=== PATIENT | male | born 1960 | race Two or more races ===

== ENCOUNTER 2018-10-22 10:56 | Emergency (ER) | payer SELFPAY ==
[~2018-10-22] VITALS: Ht 167.6 cm; Wt 59.0 kg
[2018-10-22] MEDS ORDERED: ONDANSETRON PF 4 MG/2 ML VIAL. IV ONE (11:30)
[2018-10-22] MEDS ORDERED: fentaNYL PF VIAL 100 MCG/2 ML VIAL IV ONE (11:30)
[2018-10-22 11:46] LABS: BASO # 0.1 x10^3/uL (0.0-0.2); BASO % 1 % (0-3); EOS # 0.2 x10^3/uL (0.0-0.7); EOS % 2 % (0-3); HEMATOCRIT 44.9 % (39.0-53.0); HEMOGLOBIN 14.9 g/dL (13.0-17.5); LYMPH # 1.7 x10^3/uL (1.0-4.8); LYMPH % 16 % (24-48); MEAN CORPUSCULAR HEMOGLOBIN 28 pg (25-35); MEAN CORPUSCULAR HGB CONC 33 g/dL (31-37); MEAN CORPUSCULAR VOLUME 85 fL (79-100); MONO # 0.6 x10^3/uL (0.0-1.1); MONO % 6 % (0-9); NEUT % 75 % (31-73); PLATELET COUNT 181 x10^3/uL (140-400); RED CELL DISTRIBUTION WIDTH 13.6 % (11.5-14.5); WHITE BLOOD COUNT 10.6 x10^3/uL (4.0-11.0)
[2018-10-22 12:01] LABS: PROTHROMBIN TIME PATIENT 12.4 SEC (11.7-14.0)
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
[2018-10-22 12:02] LABS: CALCIUM 9.5 mg/dL (8.5-10.1); GFR 76.7; POTASSIUM 4.1 mmol/L (3.5-5.1)
[2018-10-22 12:08] LABS: TOTAL BILIRUBIN 0.3 mg/dL (0.2-1.0); TOTAL PROTEIN 7.9 g/dL (6.4-8.2)
[2018-10-22 12:27] VITALS: BP 163/81
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
== END 2018-10-22 12:35 | disposition short-term general hospital (02) ==
LOC: ER 10:56
DX: S06.5X1A Traumatic subdural hemorrhage with loss of consciousness of 30 minutes or less, initial encounter (principal); M54.2 Cervicalgia; R04.0 Epistaxis; V87.8XXA Person injured in other specified noncollision transport accidents involving motor vehicle (traffic), initial encounter; Y93.89 Activity, other specified; Y92.410 Unspecified street and highway as the place of occurrence of the external cause; Y99.8 Other external cause status
CPT/HCPCS: 36415; 70450; 70486; 71045; 72125; 80053; 85025; 85610; 96374; 99291; J2405